=== PATIENT | female | born 1970 | race Caucasian/White ===

== ENCOUNTER 2019-06-09 19:55 | Emergency (ER) | payer OTHER ==
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
[2019-06-09] MEDS ORDERED: HYDR-3165 PO (21:32)
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
[2019-06-09] MEDS ORDERED: KETOROLAC 30 MG/ML VIAL. IV ONE (22:00)
[2019-06-09] MEDS ORDERED: diphenhydrAMINE 50 MG/ML VIAL IVP ONE (22:00)
[2019-06-09] MEDS ORDERED: METOCLOPRAMIDE HCL 10 MG/2 ML VIAL. IV ONE (22:00)
[2019-06-09] MEDS ORDERED: IV NORMAL SALINE 1,000ML 1,000 ML IV ONE (22:00)
[2019-06-09 22:27] LABS: BASO # 0.1 x10^3/uL (0.0-0.2); BASO % 1 % (0-3); EOS # 0.1 x10^3/uL (0.0-0.7); EOS % 1 % (0-3); HEMATOCRIT 35.8 % (36.0-47.0); HEMOGLOBIN 11.8 g/dL (12.0-15.5); LYMPH # 2.1 x10^3/uL (1.0-4.8); LYMPH % 36 % (24-48); MEAN CORPUSCULAR HEMOGLOBIN 30 pg (25-35); MEAN CORPUSCULAR HGB CONC 33 g/dL (31-37); MEAN CORPUSCULAR VOLUME 92 fL (79-100); MONO # 0.4 x10^3/uL (0.0-1.1); MONO % 7 % (0-9); NEUT # 3.3 x10^3uL (1.8-7.7); NEUT % 55 % (31-73); PLATELET COUNT 235 x10^3/uL (140-400); RED BLOOD COUNT 3.91 x10^6/uL (3.50-5.40); RED CELL DISTRIBUTION WIDTH 16.7 % (11.5-14.5)
[2019-06-09] MEDS ORDERED: HYDROcodone/APAP 5/325MG 1 TAB TABLET PO ONE (22:30)
[2019-06-09 22:54] LABS: ALBUMIN 3.7 g/dL (3.4-5.0); ALBUMIN/GLOBULIN RATIO 1.2 (1.0-1.7); CALCIUM 9.1 mg/dL (8.5-10.1); CREATININE 0.8 mg/dL (0.6-1.0); GFR 75.9; POTASSIUM 3.6 mmol/L (3.5-5.1); TOTAL BILIRUBIN 0.3 mg/dL (0.2-1.0); TOTAL PROTEIN 6.9 g/dL (6.4-8.2)
[2019-06-09 23:19] VITALS: BP 123/70
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
== END 2019-06-09 23:29 | disposition home or self-care (01) ==
LOC: ER 19:55
DX: S40.022A Contusion of left upper arm, initial encounter (principal); R55 Syncope and collapse; R51 Headache; M54.2 Cervicalgia; V43.52XA Car driver injured in collision with other type car in traffic accident, initial encounter; Y93.I9 Activity, other involving external motion; Y92.488 Other paved roadways as the place of occurrence of the external cause; Y99.8 Other external cause status
CPT/HCPCS: 36415; 70450; 72125; 73060; 80053; 85025; 96361; 96374; 96375; 99285; J1200; J1885; J2765; J7030

== ENCOUNTER 2020-01-03 17:27 | Emergency (ER) | payer SELFPAY ==
[~2020-01-03] VITALS: Ht 180.3 cm; Wt 65.4 kg
[~2020-01-03 17:27] MED LIST: HYDR-3165 PO
[2020-01-03] MEDS ORDERED: IV RINGERS SOLUTION,LACTATED 1,000 ML IV SCH (18:02)
--- NOTE | 2020-01-03 18:02 | PHYS DOC ---
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 but I have this cough.. and so does my boy friend.. I brought him and so I though I would get checked too... I ve have had this current bout for at least a couple weeks..." Patient is a 49 year old female who presents with above hx and complaints of cough. Patient states her cough is been nonproductive. Pt. does smoke and on occasion gets a smoker cough, and sometimes seasonal allergies. Patient does have a history of reactive airway and seasonal allergies. Patient denies any specific ill contacts other than his her life partner who is also had a cough. Patient denies any recent travel outside [facility]. Patient denies any history immunosuppression. Patient has had some symptoms of flu consist of nausea. Patient does have a history of fibromyalgia ,chronic pain and arthritis. Patient normally follows with Dr. Fleming and Jose Armando. Patient currently reducing her risk Celexa med from 60-40mg a day. Pt. has also followed with Dr. Herrera. Review of Systems: Review of Systems: Constitutional: Denies fever or chills Eyes: Denies change in visual acuity HENT: Denies nasal congestion or sore throat Respiratory: Denies cough or shortness of breath Cardiovascular: Denies chest pain or edema GI: Denies abdominal pain, nausea, vomiting, bloody stools or diarrhea : Denies dysuria Musculoskeletal: Denies back pain or joint pain Integument: Denies rash Neurologic: Denies headache, focal weakness or sensory changes Endocrine: Denies polyuria or polydipsia Lymphatic: Denies swollen glands Psychiatric: Denies depression or anxiety Heart Score: HEART Score for Chest Pain: HEART Score for Chest Pain Response (Comments) Value History Slighlty/Non-Suspicious 0 ECG Nonspecific Repolarizatio 1 Age >45 - < 65 1 Risk Factors 1 or 2 Risk Factors 1 Troponin < Normal Limit 0 Total 3 Risk Factors: Risk Factors: DM, Current or recent (<one month) smoker, HTN, HLP, family history of CAD, obesity. Risk Scores: Score 0 - 3: 2.5% MACE over next 6 weeks - Discharge Home Score 4 - 6: 20.3% MACE over next 6 weeks - Admit for Clinical Observation Score 7 - 10: 72.7% MACE over next 6 weeks - Early Invasive Strategies Family History: Family History: Noncontributory to presentation Current Medications: Current Meds: See nursing for home meds Allergies: Allergies: Allergies Coded Allergies Type Severity Reaction Last Updated Verified acetaminophen Allergy Unknown 01/03/20 Yes duloxetine Allergy Unknown 01/03/20 Yes oxycodone Allergy Unknown 01/03/20 Yes paroxetine Allergy Unknown 01/03/20 Yes Uncoded Allergies Type Severity Reaction Last Updated Verified tylenol #3 Allergy Unknown 01/03/20 Physical Exam: PE: Constitutional: no acute distress, non-toxic appearance. [] HENT: Normocephalic, atraumatic, bilateral external ears normal, oropharynx moist, mild posterior pharyngeal erythema no oral exudates, nose swollen turbinates and clear rhinorrhea Eyes: PERRLA, EOMI, conjunctiva normal, no discharge. [] Neck: Normal range of motion, no tenderness, supple, no stridor. [] Cardiovascular:Heart rate regular rhythm, no murmur [] Lungs & Thorax: Bilateral breath sounds equal apex with scattered wheezes on auscultation [] Abdomen: Bowel sounds normal, soft, no tenderness, no masses, no pulsatile masses. [] Skin: Warm, dry, no erythema, no rash. [] Back: No tenderness, no CVA tenderness. [] Extremities: No tenderness, no cyanosis, no clubbing, ROM intact, no edema. [] No cording in legs Neurologic: Alert and oriented X 3, normal motor function, normal sensory function, no focal deficits noted. [] Psychologic: Affect anxious l, judgement normal, mood normal. [] Current Patient Data: Vital Signs: Vital Signs Date Time Temp Pulse Resp B/P (MAP) Pulse Ox O2 Delivery O2 Flow Rate FiO2 01/03/20 17:52 98.2 87 16 112/80 (91) 98 Room Air EKG: EKG: [] Radiology/Procedures: Radiology/Procedures: [][address] [address] IMAGING REPORT Signed PATIENT: TOMÁS ALDRICH ACCOUNT: [id number] : 1970 LOCATION: ER AGE: 49 SEX: F EXAM STATUS: REG ER ORD. PHYSICIAN: VIRGINIA PERKINS MD REASON: Cough and dyspnea PROCEDURE: PORTABLE CHEST 1V PORTABLE CHEST 1V 01/03/2020 6:02 PM INDICATION: Cough and dyspnea COMPARISON: None available TECHNIQUE: Portable frontal view of the chest is provided. FINDINGS: The cardiomediastinal silhouette is within normal limits. Lungs are clear. There are no significant pleural effusions. There is no pulmonary vascular congestion. No pneumothorax. No suspicious osseous abnormality. IMPRESSION: There is no acute cardiopulmonary process. Electronically signed by: Dulce Maria Ley MD (01/03/2020 6:55 PM) [facility] DICTATED AND SIGNED BY: DULCE MARIA LEY MD DATE: 01/03/201854 CC: VIRGINIA PERKINS MD; PCP,NO ~ Course & Med Decision Making: Course & Med Decision Making Pertinent Labs and Imaging studies reviewed. (See chart for details) Push fluids. Take ibuprofen as needed for your discomfort. Follow-up with primary care. Currently your x-ray shows no pneumonia or unusual infiltrates. Your CBC and electrolytes are normal. EKG shows no strain pattern. If you are having a fever or ill you should self isolate for 2 weeks. No travel. Wear a mask when you are out only for necessary functions. Must stop smoking. Return if any concerns. Use MDI 2 puffs 4 times a day. Impression 1. Viral Syndrome 2. Hx Chronic Pain/ Fibromyalgia- (recent reduction of control meds) 3. Tobacco Use [] Dragon Disclaimer: Peterson Disclaimer: This electronic medical record was generated, in whole or in part, using a voice recognition dictation system. Departure Departure: Disposition: HOME/RESIDENCE PRIOR TO ADM Condition: STABLE Referrals: PCP,NO (PCP) Scripts Ondansetron Hcl (ZOFRAN) 8 Mg Tablet 8 MG PO QIDPRN PRN for active nausea and vomiting, #30 BOT Prov: VIRGINIA PERKINS MD 01/03/20 Albuterol Sulfate (VENTOLIN HFA INHALER) 18 Gm Hfa.aer.ad 2 PUFF IH PRN Q4HRS PRN for FOR ASTHMA for 30 Days, INHALER 0 Refills Prov: VIRGINIA PERKINS MD 01/03/20 Peterson Disclaimer This chart was dictated in whole or in part using Voice Recognition software in a busy, high-work load, and often noisy Emergency Department environment. It may contain unintended and wholly unrecognized errors or omissions. VIRGINIA PERKINS MD Jan 03, 2020 18:03
--- NOTE | 2020-01-03 18:58 | RAD ---
PORTABLE CHEST 1V 01/03/2020 6:02 PM INDICATION: Cough and dyspnea COMPARISON: None available TECHNIQUE: Portable frontal view of the chest is provided. FINDINGS: The cardiomediastinal silhouette is within normal limits. Lungs are clear. There are no significant pleural effusions. There is no pulmonary vascular congestion. No pneumothorax. No suspicious osseous abnormality. IMPRESSION: There is no acute cardiopulmonary process. Electronically signed by: Amanda Gloria MD (01/03/2020 6:55 PM) [facility]
[2020-01-03] MEDS ORDERED: ONDANSETRON PF 4 MG/2 ML VIAL. ONE (19:31)
[2020-01-03 20:04] LABS: BASO # 0.1 x10^3/uL (0.0-0.2); BASO % 1 % (0-3); EOS # 0.1 x10^3/uL (0.0-0.7); EOS % 1 % (0-3); HEMATOCRIT 43.7 % (36.0-47.0); HEMOGLOBIN 14.6 g/dL (12.0-15.5); LYMPH # 1.8 x10^3/uL (1.0-4.8); LYMPH % 17 % (24-48); MEAN CORPUSCULAR HEMOGLOBIN 33 pg (25-35); MEAN CORPUSCULAR HGB CONC 33 g/dL (31-37); MEAN CORPUSCULAR VOLUME 100 fL (79-100); MONO # 0.6 x10^3/uL (0.0-1.1); MONO % 5 % (0-9); NEUT # 8.2 x10^3uL (1.8-7.7); NEUT % 76 % (31-73); PLATELET COUNT 221 x10^3/uL (140-400); RED BLOOD COUNT 4.39 x10^6/uL (3.50-5.40); RED CELL DISTRIBUTION WIDTH 13.3 % (11.5-14.5); WHITE BLOOD COUNT 10.8 x10^3/uL (4.0-11.0)
[2020-01-03 20:11] LABS: CALCIUM 9.4 mg/dL (8.5-10.1); CREATININE 0.7 mg/dL (0.6-1.0); GFR 88.2; POTASSIUM 4.2 mmol/L (3.5-5.1)
[2020-01-03 20:20] LABS: INFLUENZA A PATIENT NEGATIVE (NEGATIVE); INFLUENZA B PATIENT NEGATIVE (NEGATIVE)
[2020-01-03 20:23] LABS: ALBUMIN 3.8 g/dL (3.4-5.0); DIRECT BILIRUBIN 0.1 mg/dL (0.0-0.2); MAGNESIUM 1.8 mg/dL (1.8-2.4); TOTAL BILIRUBIN 0.3 mg/dL (0.2-1.0)
[2020-01-03] MEDS ORDERED: ALBU2.5V8 IH (20:55)
[2020-01-03 21:30] VITALS: BP 117/72
[2020-01-03] MEDS ORDERED: ONDANSETRON 4MG ODT 4TABLET STARTPACK. PO ONE ×2 (21:53→22:00)
[2020-01-03] MEDS ORDERED: ONDA8TAB9 PO (21:53)
[2020-01-03 22:15] LABS: BARBITURATES NEG (NEG); BENZODIAZEPINES POS (NEG); CANNABINOIDS NEG (NEG); COCAINE NEG (NEG); METHADONE NEG (NEG); OPIATES NEG (NEG); PHENCYCLIDINE NEG (NEG)
[2020-01-03 22:16] LABS: AMPHETAMINE/METHAMPHETAMINE NEG (NEG)
[2020-01-03 22:25] LABS: BILIRUBIN,URINE NEG (NEG); CLARITY,URINE HAZY; COLOR,URINE YELLOW; GLUCOSE,URINE NEG (NEG)
[2020-01-03 22:26] LABS: BACTERIA,URINE FEW /HPF (0-FEW); NITRITE,URINE NEG (NEG); SQUAMOUS EPITHELIAL CELL,UR MOD /LPF; UROBILINOGEN,URINE 0.2 mg/dL (0.2 mg/dL); WBC,URINE OCC /HPF (0-4)
--- NOTE | 2020-01-04 00:13 | EKG ---
[address] [address] Test Date: 2020-01-03 Test Time: 19:02:18 Pat Name: TOMÁS ALDRICH Department: Room: Gender: F Material Controller: : 1970 Requested By: VIRGINIA PERKINS Order Number: [id number] Reading MD: Reji Baird Measurements Intervals [place] Rate: 62 P: -59 MO: 142 QRS: 48 QRSD: 84 T: 47 QT: 418 QTc: 427 Interpretive Statements SINUS RHYTHM Electronically Signed On 01-05-2020 20:03:25 CDT by Reji Baird
== END 2020-01-03 22:05 | disposition home or self-care (01) ==
LOC: ER 17:27
DX: R05 Cough (principal); M79.7 Fibromyalgia; F17.210 Nicotine dependence, cigarettes, uncomplicated; Z88.5 Allergy status to narcotic agent; Z88.6 Allergy status to analgesic agent; Z88.8 Allergy status to other drugs, medicaments and biological substances
CPT/HCPCS: 36415; 71045; 80048; 80076; 80307; 81001; 82550; 83735; 83880; 84443; 84484; 85025; 85379; 85610; 85730; 87070; 87804; 87880; 93005; 99285; J7120; Q0162

== ENCOUNTER 2020-01-15 14:01 | Emergency (ER) | payer SELFPAY ==
[~2020-01-15] VITALS: Ht 180.3 cm; Wt 62.3 kg
[~2020-01-15 14:01] MED LIST changes: +ALBU2.5V8 IH; +ONDA8TAB9 PO
[2020-01-15 14:22] VITALS: BP 105/67
--- NOTE | 2020-01-15 14:37 | PHYS DOC ---
Past History Past Medical History: Fibromyalgia Past Surgical History: No Surgical History Additional Past Surgical Histo: c section, cervix surgery Smoking: Cigarettes Alcohol Use: None Drug Use: None Adult General Chief Complaint Chief Complaint: HEADACHE HPI HPI Patient is a 49 year old female who presents with complaint of headache after having a fall at home. Patient states that at approximately 1330 while she was making her bed, she accidentally slipped on pillows that were on the floor, causing her to fall over. She states she hit the right side of her head on the wall. Is not sure if she might have briefly lost consciousness. States that she was helped by her fianc at home. He brought her to the emergency department for further evaluation. Notes that she also suffered a cut to her right hand during the fall. Notes a throbbing headache currently. Also notes nausea and dizziness. States that the cut on her right hand stings but she is able to move all fingers of the right hand and does not believe she broke any bones in her hand. Not currently on any blood thinners. Review of Systems Review of Systems Constitutional: Denies fever or chills [] Eyes: Denies change in visual acuity, redness, or eye pain [] HENT: Denies nasal congestion or sore throat [] Respiratory: Denies cough or shortness of breath [] Cardiovascular: Denies chest pain or edema [] GI: Nausea, denies abdominal pain, vomiting, bloody stools or diarrhea [] : Denies dysuria or hematuria [] Musculoskeletal: Denies back pain or joint pain [] Integument: Cut on right hand [] Neurologic: Headache, dizziness, denies focal weakness or sensory changes [] All other systems were reviewed and found to be within normal limits, except as documented in this note. Allergies Allergies Allergies Coded Allergies Type Severity Reaction Last Updated Verified acetaminophen Allergy Unknown 01/03/20 Yes duloxetine Allergy Unknown 01/03/20 Yes oxycodone Allergy Unknown 01/03/20 Yes paroxetine Allergy Unknown 01/03/20 Yes Uncoded Allergies Type Severity Reaction Last Updated Verified tylenol #3 Allergy Unknown 01/03/20 Physical Exam Physical Exam Constitutional: Alert, afebrile, appears in mild to moderate discomfort. [] HENT: Normocephalic, tenderness to palpation along right parietal scalp with no palpable hematoma or step-off, bilateral external ears normal, oropharynx moist, no oral exudates, nose normal. [] Eyes: PERRLA, EOMI, conjunctiva normal, no discharge. [] Neck: Normal range of motion, no midline tenderness, bilateral paraspinous muscle tenderness to palpation. [] Cardiovascular:Heart rate regular rhythm, no murmur [] Lungs & Thorax: Bilateral breath sounds clear to auscultation [] Abdomen: Bowel sounds normal, soft, no tenderness, no masses, no pulsatile masses. [] Skin: Warm, dry, 1.5 cm curvilinear shallow angled laceration into dermal tissue of palmar aspect of right hand overlying fifth MCP. [] Back: No tenderness, no CVA tenderness. [] Extremities: No tenderness, no cyanosis, no clubbing, ROM intact, no edema. [] Neurologic: Alert and oriented X 3, normal motor function, normal sensory function, no focal deficits noted. [] Current Patient Data Vital Signs Vital Signs Date Time Temp Pulse Resp B/P (MAP) Pulse Ox O2 Delivery O2 Flow Rate FiO2 01/15/20 14:22 97.4 61 18 105/67 (80) 100 Room Air Lab Results Not performed EKG EKG Not performed [] Radiology/Procedures Radiology/Procedures [address] [address] IMAGING REPORT Signed PATIENT: TOMÁS ALDRICH ACCOUNT: [id number] : 1970 LOCATION: ER AGE: 49 SEX: F EXAM STATUS: REG ER ORD. PHYSICIAN: BORIS MAYO MD REASON: Mechanical fall, head injury, head and neck pain PROCEDURE: CT HEAD AND CERVICAL SPINE WO CT HEAD AND CERVICAL SPINE WO Date: 01/15/2020 2:32 PM Clinical Indication: Head and neck pain after falling Comparison: 06/09/2019. Technique: 5 mm axial tomographic images were obtained of the head without contrast. These were viewed on brain and bone windows. CT imaging of the cervical spine was performed without contrast. Coronal and sagittal reformatted images were performed. One or more of the following dose reduction techniques were utilized: Automated exposure control (AEC), Adjustment of mA and/or kV according to patient size, Use of iterative reconstruction technique such as ASiR, CT scan done according to ALARA and image gently/image wisely HEAD FINDINGS: The brain parenchyma is normal in attenuation. No acute hemorrhage. The ventricles are normal in size, shape, and morphology. The marshall-white matter junction is normal. The basilar cisterns are patent. Right frontotemporal extra-axial isodense partially calcified lesion measuring 2.0 x 1.2 cm. The visualized paranasal sinuses are normal. The visualized portions of the orbits and globes are normal. The mastoid air cells are clear. No aggressive osseous lesion or fracture. CERVICAL SPINE FINDINGS: The cervical spine is normally aligned. No acute fracture. No aggressive lytic or blastic osseous lesion. Mild multilevel degenerative disc height loss. No high-grade spinal canal stenosis or neural foraminal narrowing. The thyroid gland is normal. No cervical lymphadenopathy. The visualized aerodigestive tract is unremarkable. The visualized lung apices are clear. IMPRESSION: 1. No acute intracranial process. 2. No acute osseous abnormality of the cervical spine. 3. Partially calcified right frontotemporal extra-axial mass measuring 1-2 0.0 x 1.2 cm, probably a meningioma. Minimal mass effect without obvious underlying parenchymal edema. This could be further evaluated with contrast-enhanced MRI. Electronically signed by: Andres Alberts MD (01/15/2020 3:06 PM) [id number] DICTATED AND SIGNED BY: ANDRES ALBERTS MD DATE: 01/15/20 1506 CC: BORIS MAYO MD; REMI STAHL ~ [] Course & Med Decision Making Course & Med Decision Making Pertinent Labs and Imaging studies reviewed. (See chart for details) CT of the head and neck negative for acute intracranial injury. Incidental finding of extra-axial mass noted and communicated the patient. Recommended follow-up with primary doctor to set up for outpatient MRI to further characterize this. Radiologist thought that this is likely a meningioma. Patient's wound to the right hand was treated with antibiotic ointment and adhesive bandage. The patient symptoms are consistent with closed head injury with mild concussion. Patient will be discharged home with head injury precautions given. Advised follow-up with primary doctor in 3 days for reevaluation advised return to the emergency department for any worsening symptoms. Patient voiced understanding and agreement with treatment plan. [] Dragon Disclaimer Dragon Disclaimer This electronic medical record was generated, in whole or in part, using a voice recognition dictation system. Departure Departure: Impression: Primary Impression: Closed head injury with concussion Additional Impressions: Skin laceration Cervical muscle strain Disposition: 01 HOME, SELF-CARE Condition: STABLE Referrals: REMI STAHL (PCP) Patient Instructions: Head Injury, Adult, Wound Care, [id number] Additional Instructions: Follow-up with your primary doctor in 3 days for reevaluation. Return to the emergency department for any worsening symptoms. Problem Qualifiers Primary Impression: Closed head injury with concussion Encounter type: initial encounter Loss of consciousness presence/duration: with LOC of unspecified duration Qualified Codes: S06.0X9A - Concussion with loss of consciousness of unspecified duration, initial encounter Additional Impressions: Cervical muscle strain Encounter type: initial encounter Qualified Codes: S16.1XXA - Strain of muscle, fascia and tendon at neck level, initial encounter BORIS MAYO MD January 15, 2020 14:37
--- NOTE | 2020-01-15 15:09 | RAD ---
CT HEAD AND CERVICAL SPINE WO Date: 01/15/2020 2:32 PM Clinical Indication: Head and neck pain after falling Comparison: 06/09/2019. Technique: 5 mm axial tomographic images were obtained of the head without contrast. These were viewed on brain and bone windows. CT imaging of the cervical spine was performed without contrast. Coronal and sagittal reformatted images were performed. One or more of the following dose reduction techniques were utilized: Automated exposure control (AEC), Adjustment of mA and/or kV according to patient size, Use of iterative reconstruction technique such as ASiR, CT scan done according to ALARA and image gently/image wisely HEAD FINDINGS: The brain parenchyma is normal in attenuation. No acute hemorrhage. The ventricles are normal in size, shape, and morphology. The marshall-white matter junction is normal. The basilar cisterns are patent. Right frontotemporal extra-axial isodense partially calcified lesion measuring 2.0 x 1.2 cm. The visualized paranasal sinuses are normal. The visualized portions of the orbits and globes are normal. The mastoid air cells are clear. No aggressive osseous lesion or fracture. CERVICAL SPINE FINDINGS: The cervical spine is normally aligned. No acute fracture. No aggressive lytic or blastic osseous lesion. Mild multilevel degenerative disc height loss. No high-grade spinal canal stenosis or neural foraminal narrowing. The thyroid gland is normal. No cervical lymphadenopathy. The visualized aerodigestive tract is unremarkable. The visualized lung apices are clear. IMPRESSION: 1. No acute intracranial process. 2. No acute osseous abnormality of the cervical spine. 3. Partially calcified right frontotemporal extra-axial mass measuring 1-2 0.0 x 1.2 cm, probably a meningioma. Minimal mass effect without obvious underlying parenchymal edema. This could be further evaluated with contrast-enhanced MRI. Electronically signed by: Mikey Alberts MD (01/15/2020 3:06 PM) [id number]
[2020-01-15] MEDS ORDERED: NEOMY/BACITR/POLYMYXIN OINT PACKET. TP ONE (15:16)
== END 2020-01-15 15:30 | disposition home or self-care (01) ==
LOC: ER 14:01
DX: S61.411A Laceration without foreign body of right hand, initial encounter (principal); S16.1XXA Strain of muscle, fascia and tendon at neck level, initial encounter; S06.0X1A Concussion with loss of consciousness of 30 minutes or less, initial encounter; R42 Dizziness and giddiness; M79.7 Fibromyalgia; F17.210 Nicotine dependence, cigarettes, uncomplicated; Z88.2 Allergy status to sulfonamides; Z88.5 Allergy status to narcotic agent; Z88.8 Allergy status to other drugs, medicaments and biological substances; Z98.890 Other specified postprocedural states; W01.0XXA Fall on same level from slipping, tripping and stumbling without subsequent striking against object, initial encounter; Y93.89 Activity, other specified; Y92.89 Other specified places as the place of occurrence of the external cause; Y99.8 Other external cause status
CPT/HCPCS: 70450; 72125; 99285